=== PATIENT | female | born 1975 | race Caucasian/White ===

== ENCOUNTER → 2017-04-07 | Outpatient (CLI) | payer BC, MEDICARE ==
--- NOTE | ~2017-04-07 | BD1 ---
[facility] A Service of [facility] RADIOLOGY TEXT RESULTS PATIENT: EDWIN ALVA LOCATION: [facility] : 73 UNIT #: [id number] AGE: [address]: Luis Mccall MD SEX: F ORDER DR: [id number] [address] [id number] O MR#: [id number] Acc #: [id number] NAME: EDWIN ALVA : 1975 SEX: F STUDY DATE/TIME: 04/07/2017 11:46 UNIT: [facility] ROOM: STUDY DESCRIPTION: Dexa Bone Dens 1+ Site Attending Physician: Luis Mccall M.D. Referring Physician: Luis Mccall M.D. Ordering Physician: Luis Mccall M.D. Primary Care Physician: Luis Mccall M.D. MEDICAL IMAGING REPORT This report is preliminary unless electronic signature is present. EXAM DEXA scan 04/07/2017 HISTORY Status post menopause with no hormone replacement therapy. Thyroid medication Synthroid use. Family history of osteoporosis in mother. Osteopenia. FINDINGS Bone mineral density in the lumbar spine from L1-L4 is 1.234 g/cm2 which is 0.4 standard deviations above the mean when compared to the young adult reference population which is within the range of normal. This is 0.1 standard deviations above the mean when compared to the age-matched population. Bone mineral density in the left femoral neck was 0.955 g/cm2 which is 0.6 standard deviations below the mean when compared to the young adult reference population which is within the range of normal. This is 0.3 standard deviations below the mean when compared to the age-matched population. Bone mineral density in the right femoral neck was 0.922 g/cm2 which is 0.8 standard deviations below the mean when compared to the young adult reference population which is within the range of normal. This is 0.5 standard deviations below the mean when compared to the age-matched population. IMPRESSION Bone mineral density in the lumbar spine and the hips bilaterally within the range of normal. Dictated by... Charles Ge M.D. THIS IS AN ELECTRONICALLY VERIFIED REPORT [facility] A Service of [facility] RADIOLOGY TEXT RESULTS PATIENT: EDWIN ALVA LOCATION: [facility] : 73 UNIT #: [id number] AGE: [address]: Luis Mccall MD SEX: F ORDER DR: Charles Ge M.D. at 04/08/2017 8:03 AM FAMILIA/carlos alberto TD: 04/07/2017 15:11 JOB #: [id number] MEDICAL IMAGING REPORT Page 1 of 1
== END | disposition home or self-care (01) ==
LOC: SRAD 11:16
DX: M81.0 Age-related osteoporosis without current pathological fracture (principal); Z78.0 Asymptomatic menopausal state
CPT/HCPCS: 77080